=== PATIENT | female | born 1995 | race Caucasian/White ===

== ENCOUNTER 2016-08-29 12:51 | Emergency (ER) | payer OTHER ==
[2016-08-29 12:58] VITALS: BP 136/81
--- NOTE | 2016-08-29 13:34 | ER Document Report ---
ED Medical Screen (RME) - General Chief Complaint: Abdominal Pain Stated Complaint: STOMACH PAIN Time Seen by Provider: 08/29/16 13:26 Notes: Patient is here with stomach pain this began last night. It is in the lower abdomen, bilaterally, but more so on the left side. Patient thinks is due to constipation as she has been diagnosed with IBS. Denies any nausea or vomiting or diarrhea. She took an enema last night and got results, but it did not help her abdominal pains. Denies UTI symptoms. Denies any fever. LMP 5, on no control. PMH: Cholecystectomy. TRAVEL OUTSIDE OF THE [place] IN LAST 30 DAYS: No - Related Data Allergies/Adverse Reactions: acetaminophen [From Percocet] Allergy (Verified 08/29/16 12:57) codeine Allergy (Verified 08/29/16 12:57) cyproheptadine [From Periactin] Allergy (Verified 08/29/16 12:57) oxycodone [From Percocet] Allergy (Verified 08/29/16 12:57) Penicillins Allergy (Verified 08/29/16 12:57) promethazine [From Phenergan] Allergy (Verified 08/29/16 12:57) Past Medical History - Social History Frequency of alcohol use: None Drug Abuse: None Pulmonary Medical History: Reports: Hx Asthma Renal/ Medical History: Denies: Hx Peritoneal Dialysis Past Surgical History: Reports: Hx Cholecystectomy, Hx Tonsillectomy Physical Exam - Vital signs Vitals: Temp Pulse Resp BP Pulse Ox 98.4 F 87 18 136/81 H 100 08/29/16 12:55 08/29/16 12:55 08/29/16 12:55 08/29/16 12:55 08/29/16 12:55 Course - Vital Signs Vital signs: Temp Pulse Resp BP Pulse Ox 98.4 F 87 18 136/81 H 100 08/29/16 12:55 08/29/16 12:55 08/29/16 12:55 08/29/16 12:55 08/29/16 12:55
[2016-08-29 14:24] LABS: ABSOLUTE EOSINOPHILS # (AUTO) 0.1 10^3/uL (0.0-0.6); ABSOLUTE LYMPHOCYTES (AUTO) 1.4 10^3/uL (0.5-4.7); ABSOLUTE MONOCYTES (AUTO) 0.5 10^3/uL (0.1-1.4); ABSOLUTE NEUT (AUTO) 5.6 10^3/uL (1.7-8.2); BASOPHILS % (AUTO) 0.4 % (0-2); EOSINOPHILS % (AUTO) 1.4 % (0-6); HEMATOCRIT 43.8 % (36.0-47.0); HEMOGLOBIN 14.6 g/dL (12.0-15.5); LYMPHOCYTES % (AUTO) 17.9 % (13-45); MEAN CORPUSCULAR HEMOGLOBIN 29.2 pg (27.0-33.4); MEAN CORPUSCULAR HGB CONC 33.2 g/dL (32.0-36.0); MEAN CORPUSCULAR VOLUME 88 fl (80-97); MONOCYTES % (AUTO) 6.8 % (3-13); RED CELL DISTRIBUTION WIDTH 13.6 % (11.5-14.0); SEGMENTED NEUTROPHILS % (AUTO) 73.5 % (42-78); WHITE BLOOD COUNT 7.7 10^3/uL (4.0-10.5)
[2016-08-29 14:25] LABS: APPEARANCE,URINE SLIGHTLY-CLOUDY; BILIRUBIN,URINE NEGATIVE (NEGATIVE); GLUCOSE, URINE NEGATIVE (NEGATIVE); KETONES,URINE NEGATIVE (NEGATIVE); LEUKOCYTE ESTERASE,URINE TRACE (NEGATIVE); NITRITE,URINE NEGATIVE (NEGATIVE); PROTEIN,URINE NEGATIVE (NEGATIVE); URINE SPECIFIC GRAVITY 1.006; UROBILINOGEN,URINE NEGATIVE mg/dL (<2.0)
[2016-08-29 14:39] LABS: ALANINE AMINOTRANSFERASE 28 U/L (9-52); ALKALINE PHOSPHATASE 72 U/L (38-126); ANION GAP 14 (5-19); ASPARTATE AMINO TRANSFERASE 25 U/L (14-36); BILIRUBIN,DIRECT 0.2 mg/dL (0.0-0.4); BILIRUBIN,TOTAL 1.3 mg/dL (0.2-1.3); BLOOD UREA NITROGEN 6 mg/dL (7-20); CALCIUM 9.8 mg/dL (8.4-10.2); CARBON DIOXIDE 26 mmol/L (22-30); CHLORIDE 103 mmol/L (98-107); CREATININE RESULT 0.66 mg/dL (0.52-1.25); GLUCOSE 89 mg/dL (75-110); POTASSIUM 4.3 mmol/L (3.6-5.0); SODIUM 142.5 mmol/L (137-145)
--- NOTE | 2016-08-29 14:53 | ER Document Report ---
ED GI/ - General Chief Complaint: Abdominal Pain Stated Complaint: STOMACH PAIN Time Seen by Provider: 08/29/16 13:26 Mode of Arrival: Ambulatory Information source: Patient Notes: Patient is a 20-year-old female with irritable bowel syndrome who presents to the ER today for constipation 2 and half weeks with generalized abdominal pain. Patient states that she tried an enema last night with no relief. She is also been taking stool softener which has not been helping. She is trying to eat more bran as well as drink more water. TRAVEL OUTSIDE OF THE [place] IN LAST 30 DAYS: No - Related Data Allergies/Adverse Reactions: acetaminophen [From Percocet] Allergy (Verified 09/01/16 02:19) codeine Allergy (Verified 09/01/16 02:19) cyproheptadine [From Periactin] Allergy (Verified 09/01/16 02:19) oxycodone [From Percocet] Allergy (Verified 09/01/16 02:19) Penicillins Allergy (Verified 09/01/16 02:19) promethazine [From Phenergan] Allergy (Verified 09/01/16 02:19) Tetracyclines Allergy (Verified 09/01/16 02:19) Past Medical History - General Information source: Patient - Social History Smoking Status: Former Smoker Frequency of alcohol use: None Drug Abuse: None Family History: Reviewed & Not Pertinent Patient has suicidal ideation: No Patient has homicidal ideation: No Pulmonary Medical History: Reports: Hx Asthma Renal/ Medical History: Denies: Hx Peritoneal Dialysis Past Surgical History: Reports: Hx Cholecystectomy, Hx Tonsillectomy Review of Systems - Review of Systems Constitutional: No symptoms reported EENT: No symptoms reported Cardiovascular: No symptoms reported Respiratory: No symptoms reported Gastrointestinal: See HPI Genitourinary: No symptoms reported Female Genitourinary: No symptoms reported Musculoskeletal: No symptoms reported Skin: No symptoms reported Hematologic/Lymphatic: No symptoms reported Neurological/Psychological: No symptoms reported Physical Exam - Vital signs Vitals: Temp Pulse Resp BP Pulse Ox 98.4 F 87 18 136/81 H 100 08/29/16 12:55 08/29/16 12:55 08/29/16 12:55 08/29/16 12:55 08/29/16 12:55 - Notes Notes: PHYSICAL EXAMINATION: GENERAL: Well-appearing and in no acute distress. HEAD: Atraumatic, normocephalic. EYES: Pupils equal round and reactive to light, extraocular movements intact, sclera anicteric, conjunctiva are normal. NECK: Normal range of motion, supple without lymphadenopathy LUNGS: CTAB and equal. No wheezes rales or rhonchi. HEART: Regular rate and rhythm without murmurs ABDOMEN: Soft, no tenderness. No guarding, no rebound BACK: no vertebral tenderness, normal ROM GI/: no CVA tenderness EXTREMITIES: Normal range of motion, no pitting edema. No cyanosis. NEUROLOGICAL: Cranial nerves grossly intact. Normal sensory/motor exams. PSYCH: Normal mood, normal affect. SKIN: Warm, Dry, normal turgor, no rashes or lesions noted Course - Re-evaluation Re-evalutation: 08/29/16 16:26 Lab work is unremarkable today, patient abdomen was completely nontender to exam , she looks very well. Abdominal x-ray did report moderate stool throughout, normal bowel gas pattern though, will give her senna here. I will also provide her with a constipation regimen. - Vital Signs Vital signs: Temp Pulse Resp BP Pulse Ox 98.4 F 87 18 136/81 H 100 08/29/16 12:55 08/29/16 12:55 08/29/16 12:55 08/29/16 12:55 08/29/16 12:55 - Laboratory Result Diagrams: 08/29/16 14:00 08/29/16 14:00 Laboratory results interpreted by me: 08/29/16 08/29/16 14:00 14:00 BUN 6 L Ur Leukocyte Esterase TRACE H Discharge - Discharge Clinical Impression: Constipation Condition: Stable Disposition: HOME, SELF-CARE Additional Instructions: If you are still constipated and more than 10 hours, go ahead and get senna over -the-counter and take 1-2 more tablets. This really should produce a bowel movement in 6 hours. Return immediately for any new or worsening symptoms. Follow up with primary care provider, call tomorrow to make followup appointment. daily constipation regimen: 1 cup WHOLE BRAN (RED MILL BRAND) 1 cup applesauce 3/4 cup prune juice mix together, keep refrigerated, have patient eat 1-2 tablespoons per day followed by 6-8 ounces of water immediately. Also please consider a SQUATTY POTTY, you can get these online or [employer] for approximately $20. It allows the positioning of patient to have a bowel movement to be most appropriate to facilitate bowel movements. Forms: Return to Work
--- NOTE | 2016-08-29 15:56 | RADIOLOGY REPORT (SQ) ---
EXAM DESCRIPTION: KUB/ABDOMEN (SINGLE VIEW) COMPLETED DATE/TIME: 08/29/2016 3:46 pm REASON FOR STUDY: constipation, abd pain COMPARISON: None. NUMBER OF VIEWS: One view. TECHNIQUE: Supine radiographic image of the abdomen acquired. LIMITATIONS: None. FINDINGS: BOWEL GAS PATTERN: Normal bowel gas pattern. No dilated loops. There is a moderate amount of stool present. There is some small and large bowel gas present. CALCIFICATIONS: No suspicious calcifications. SOFT TISSUES: No gross mass or suggestion of organomegaly. HARDWARE: None in the abdomen. BONES: No acute fracture. No worrisome bone lesions. OTHER: No other significant finding. IMPRESSION: Nonspecific abdomen. TECHNICAL DOCUMENTATION: JOB ID: [id number] [employer]- All Rights Reserved
[2016-08-29] MEDS ORDERED: SENNOSIDES/DOCUSATE 8.6-50 MG 1 EACH TABLET PO ONE (16:07)
== END 2016-08-29 16:51 | disposition home or self-care (01) ==
LOC: ER 12:51
DX: K58.1 Irritable bowel syndrome with constipation (principal); R10.84 Generalized abdominal pain; J45.909 Unspecified asthma, uncomplicated; Z88.5 Allergy status to narcotic agent; Z88.0 Allergy status to penicillin; Z88.8 Allergy status to other drugs, medicaments and biological substances; Z87.891 Personal history of nicotine dependence
CPT/HCPCS: 36415; 74000; 80053; 81001; 83690; 84703; 85025; 99284

== ENCOUNTER 2016-09-01 02:12 | Emergency (ER) | payer OTHER ==
--- NOTE | 2016-09-01 04:47 | RADIOLOGY REPORT (SQ) ---
EXAM DESCRIPTION: CHEST SINGLE VIEW COMPLETED DATE/TIME: 09/01/2016 4:36 am REASON FOR STUDY: shortness of breath COMPARISON: None. EXAM PARAMETERS: NUMBER OF VIEWS: One view. TECHNIQUE: Single frontal radiographic view of the chest acquired. RADIATION DOSE: NA LIMITATIONS: None. FINDINGS: LUNGS AND PLEURA: No consolidation, pneumothorax or pleural effusion. MEDIASTINUM AND HILAR STRUCTURES: No masses. Contour normal. HEART AND VASCULAR STRUCTURES: Heart normal in size. No overt vascular congestion. BONES: No acute findings. HARDWARE: None in the chest. IMPRESSION: No acute radiographic finding in the chest. TECHNICAL DOCUMENTATION: JOB ID: [id number]
[2016-09-01] MEDS ORDERED: ALBUTEROL SULFATE HFA (90 MCG/PUFF) 8 GM MDI (1 MDI/ER DISP) IH PRN (04:57)
--- NOTE | 2016-09-01 05:00 | ER Document Report ---
ED General - General Chief Complaint: Shortness Of Breath Stated Complaint: DIFFICULTY BREATHING Time Seen by Provider: 09/01/16 02:47 Notes: Patient is a 20-year-old female with a past medical history of asthma, no prior hospitalizations or intubations who presents with 3-4 hours of shortness of breath and has not responded to a home albuterol treatment. Patient notes that she has felt her breathing has been getting worse over the last several days since recently moving to [place] but it became much worse tonight. She denies any associated chest pain, hemoptysis, pleuritic pain or syncope. No history of DVT or pulmonary embolus. She has not noted that anything seems to worsen her symptoms. She has not seen her primary care doctor regarding today' s concerns. States her symptoms today feel similar to prior mild exacerbations. TRAVEL OUTSIDE OF THE [place] IN LAST 30 DAYS: No - Related Data Allergies/Adverse Reactions: acetaminophen [From Percocet] Allergy (Verified 09/01/16 02:19) codeine Allergy (Verified 09/01/16 02:19) cyproheptadine [From Periactin] Allergy (Verified 09/01/16 02:19) oxycodone [From Percocet] Allergy (Verified 09/01/16 02:19) Penicillins Allergy (Verified 09/01/16 02:19) promethazine [From Phenergan] Allergy (Verified 09/01/16 02:19) Tetracyclines Allergy (Verified 09/01/16 02:19) Past Medical History - General Information source: Patient - Social History Smoking Status: Never Smoker Frequency of alcohol use: None Drug Abuse: None Lives with: Spouse/Significant other Family History: Reviewed & Not Pertinent Pulmonary Medical History: Reports: Hx Asthma Renal/ Medical History: Denies: Hx Peritoneal Dialysis Past Surgical History: Reports: Hx Cholecystectomy, Hx Tonsillectomy Review of Systems - Review of Systems Notes: Constitutional: Negative for fever. HENT: Negative for sore throat. Eyes: Negative for visual changes. Cardiovascular: Negative for chest pain. Respiratory: Positive for shortness of breath. Gastrointestinal: Negative for abdominal pain, vomiting or diarrhea. Genitourinary: Negative for dysuria. Musculoskeletal: Negative for back pain. Skin: Negative for rash. Neurological: Negative for headaches, weakness or numbness. 10 point ROS negative except as marked above and in HPI. Physical Exam - Vital signs Vitals: Temp Pulse Resp BP Pulse Ox 98.4 F 85 18 126/90 H 100 09/01/16 02:19 09/01/16 02:19 09/01/16 02:19 09/01/16 02:19 09/01/16 02:19 Interpretation: Normal Notes: PHYSICAL EXAMINATION: GENERAL: Well-appearing, well-nourished and in no acute distress. HEAD: Atraumatic, normocephalic. EYES: Pupils equal round and reactive to light, extraocular movements intact, sclera anicteric, conjunctiva are normal. ENT: nares patent, oropharynx clear without exudates. Moist mucous membranes. NECK: Normal range of motion, supple without lymphadenopathy LUNGS: Breath sounds clear to auscultation bilaterally and equal. Scant expiratory wheezing in all [place]. HEART: Regular rate and rhythm without murmurs ABDOMEN: Soft, nontender, normoactive bowel sounds. No guarding, no rebound. No masses appreciated. EXTREMITIES: Normal range of motion, no pitting or edema. No cyanosis. NEUROLOGICAL: No focal neurological deficits. Moves all extremities spontaneously and on command. PSYCH: Normal mood, normal affect. SKIN: Warm, Dry, normal turgor, no rashes or lesions noted. Course - Re-evaluation Re-evalutation: 09/01/16 04:58 Patient presents with a mild exacerbation of their baseline asthma. Mild wheezing at time of presentation but vitals do not show significant hypoxemia or tachypnea. No retractions. Patient did clinically improve after receiving nebulizers here in the emergency department. Chest x-ray without evidence of an acute pneumonia. Patient able to ambulate without any respiratory distress. Based on patient's overall reassuring assessment, I believe they are stable for outpatient management with steroids. I do not suspect an acute alternative pathology at this time based on history and exam including acute pulmonary embolus, ACS, pneumothorax, or aortic dissection. At this time will discharge with return precautions and follow-up recommendations. Verbal discharge instructions given a the bedside and opportunity for questions given. Medication warnings reviewed. Patient is in agreement with this plan and has verbalized understanding of return precautions and the need for primary care follow-up in the next 24-72 hours. - Vital Signs Vital signs: Temp Pulse Resp BP Pulse Ox 98.4 F 85 18 126/90 H 100 09/01/16 02:19 09/01/16 02:19 09/01/16 02:19 09/01/16 02:19 09/01/16 02:19 - Diagnostic Test Radiology reviewed: Image reviewed, Reports reviewed Radiology results interpreted by me: 09/01/16 04:58 Chest x-ray: No acute infiltrate or pneumothorax - EKG Interpretation by Me Additional EKG results interpreted by me: 09/01/16 04:58 Normal sinus rhythm. Rate 82. No ST elevations or depressions. QTC is 458. Discharge - Discharge Clinical Impression: Asthma exacerbation Condition: Good Disposition: HOME, SELF-CARE Additional Instructions: You were seen for an asthma exacerbation. It is very important that you return to the emergency department immediately if you began to have worsening difficulty breathing that does not respond to your normal home nebulizers. You are also being sent home on a five-day course of steroids that you should start taking tomorrow if your symptoms are not improving. Please also follow closely with your primary care physician. you should also return to emergency department if you develop fever greater than 101, persistent cough, persistent vomiting, pass out, or any other symptoms that are concerning to you. Prescriptions: Prednisone [Deltasone 20 mg Tablet] 3 tab PO DAILY 5 Days
[2016-09-01 06:11] VITALS: BP 117/86
--- NOTE | 2016-09-01 09:37 | EKG REPORT ---
SEVERITY:- NORMAL ECG - SINUS RHYTHM : Confirmed by: Andrea Jung 01-Sep-2016 09:36:40
== END 2016-09-01 05:10 | disposition home or self-care (01) ==
LOC: ER 02:12
DX: J45.901 Unspecified asthma with (acute) exacerbation (principal); R06.02 Shortness of breath; Z88.5 Allergy status to narcotic agent; Z88.0 Allergy status to penicillin; Z88.8 Allergy status to other drugs, medicaments and biological substances; Z88.1 Allergy status to other antibiotic agents
CPT/HCPCS: 93005; 99285; 71010; 93010; J3490

== ENCOUNTER 2016-12-18 09:37 | Emergency (ER) | payer OTHER ==
--- NOTE | 2016-12-18 10:03 | ER Document Report ---
ED Medical Screen (RME) - General Chief Complaint: OB Problem (<20wks) Stated Complaint: AMNIOTIC FLUID CHECK PER OB Time Seen by Provider: 12/18/16 10:02 Notes: Patient states that she was referred here from her SEED TESTER. She states she had a small leakage of clear fluid from her vaginal area this morning. No bleeding no abdominal pain. TRAVEL OUTSIDE OF THE [place] IN LAST 30 DAYS: No - Related Data Allergies/Adverse Reactions: acetaminophen [From Percocet] Allergy (Verified 12/18/16 09:47) codeine Allergy (Verified 12/18/16 09:47) cyproheptadine [From Periactin] Allergy (Verified 12/18/16 09:47) oxycodone [From Percocet] Allergy (Verified 12/18/16 09:47) Penicillins Allergy (Verified 12/18/16 09:47) promethazine [From Phenergan] Allergy (Verified 12/18/16 09:47) Tetracyclines Allergy (Verified 12/18/16 09:47) Past Medical History Pulmonary Medical History: Reports: Hx Asthma Renal/ Medical History: Denies: Hx Peritoneal Dialysis Past Surgical History: Reports: Hx Cholecystectomy, Hx Tonsillectomy Physical Exam - Vital signs Vitals: Temp Pulse Resp BP Pulse Ox 98.5 F 107 H 18 131/82 H 100 12/18/16 09:43 12/18/16 09:43 12/18/16 09:43 12/18/16 09:43 12/18/16 09:43 Course - Vital Signs Vital signs: Temp Pulse Resp BP Pulse Ox 98.5 F 107 H 18 131/82 H 100 12/18/16 09:43 12/18/16 09:43 12/18/16 09:43 12/18/16 09:43 12/18/16 09:43
[2016-12-18 10:49] LABS: APPEARANCE,URINE CLEAR; BILIRUBIN,URINE NEGATIVE (NEGATIVE); GLUCOSE, URINE NEGATIVE (NEGATIVE); KETONES,URINE NEGATIVE (NEGATIVE); LEUKOCYTE ESTERASE,URINE SMALL (NEGATIVE); NITRITE,URINE NEGATIVE (NEGATIVE); PROTEIN,URINE NEGATIVE (NEGATIVE); URINE SPECIFIC GRAVITY 1.003; UROBILINOGEN,URINE NEGATIVE mg/dL (<2.0)
--- NOTE | 2016-12-18 11:36 | RADIOLOGY REPORT (SQ) ---
EXAM DESCRIPTION: U/S OB 14+ TRNABD 1GES W/O DOP COMPLETED DATE/TIME: 12/18/2016 11:24 am REASON FOR STUDY: leaking fluid COMPARISON: None. TECHNIQUE: Static and Dynamic grayscale imaging performed of gravid uterus using transabdominal appr oach. Additional selected color Doppler and spectral images recorded. All stored on PACS. LIMITATIONS: None. FINDINGS: EGA: 16 weeks 2 days MEETA: 06/02/2017 EFW: 153 +/-23 grams PERCENTILE: Not applicable. Fetus less than or equal to 20 weeks gestation. LVP: 3.9 cm PLACENTA: Anterior grade 1 PRESENTATION: Variable ANATOMY: HEART RATE: 133 beats per minute. FOUR CHAMBER HEART: Not assessed THREE VESSEL CORD: Not assessed CORD INSERTION: Not assessed KIDNEYS AND BLADDER: Not assessed STOMACH: Visualized. Appears normal. SPINE: Normal as visualized. BRAIN AND LATERAL VENTRICLES: Not assessed OTHER: Extremities are grossly normal. MATERNAL ADNEXA: Maternal ovaries not visualized. CERVICAL LENGTH: 3 cm Closed. OTHER: No other significant finding. IMPRESSION: Live intrauterine gestation of 16 weeks 2 days with estimated date of delivery of 018. Complete anatomical survey was not performed Trimester of : Second trimester - 13 weeks 1 day to 27 weeks 6 days. TECHNICAL DOCUMENTATION: JOB ID: [id number] [employer]- All Rights Reserved
--- NOTE | 2016-12-18 13:16 | ER Document Report ---
ED General - General Chief Complaint: OB Problem (<20wks) Stated Complaint: AMNIOTIC FLUID CHECK PER OB Time Seen by Provider: 12/18/16 10:02 TRAVEL OUTSIDE OF THE [place] IN LAST 30 DAYS: No - HPI Patient complains to provider of: Vaginal discharge Notes: Patient coming in she states she is approximately 16 weeks states mostly clear vaginal discharge earlier today called her OB [facility] OD and was told to come to the ER for further evaluation. Patient denies any trauma denies any fevers chills nausea vomiting states the discharge is clear. Patient is a . Patient denies any abdominal pain or abdominal cramping at this time. - Related Data Allergies/Adverse Reactions: acetaminophen [From Percocet] Allergy (Verified 12/18/16 09:47) codeine Allergy (Verified 12/18/16 09:47) cyproheptadine [From Periactin] Allergy (Verified 12/18/16 09:47) oxycodone [From Percocet] Allergy (Verified 12/18/16 09:47) Penicillins Allergy (Verified 12/18/16 09:47) promethazine [From Phenergan] Allergy (Verified 12/18/16 09:47) Tetracyclines Allergy (Verified 12/18/16 09:47) Home Medications: Current Home Medications Albuterol Sulfate [Proair HFA] 1 - 2 puff IH Q4 PRN 12/18/16 [History] Fluticasone/Salmeterol [Advair HFA 115-21 mcg Inhaler] 1 puff IN BID 12/18/16 [ History] 95/Iron Fum/Folic/Dha [ + Dha Combo Pack] 1 each PO DAILY 12/18 [History] Past Medical History - Social History Smoking Status: Never Smoker Chew tobacco use (# tins/day): No Frequency of alcohol use: None Drug Abuse: None Family History: Reviewed & Not Pertinent Pulmonary Medical History: Reports: Hx Asthma Renal/ Medical History: Denies: Hx Peritoneal Dialysis Past Surgical History: Reports: Hx Cholecystectomy, Hx Tonsillectomy - Immunizations Hx Diphtheria, Pertussis, Tetanus Vaccination: No Review of Systems - Review of Systems Constitutional: No symptoms reported EENT: No symptoms reported Cardiovascular: No symptoms reported Respiratory: No symptoms reported Gastrointestinal: No symptoms reported Genitourinary: No symptoms reported Female Genitourinary: Vaginal discharge Musculoskeletal: No symptoms reported Skin: No symptoms reported Hematologic/Lymphatic: No symptoms reported Neurological/Psychological: No symptoms reported -: Yes All other systems reviewed and negative Physical Exam - Vital signs Vitals: Temp Pulse Resp BP Pulse Ox 98.5 F 107 H 18 131/82 H 100 12/18/16 09:43 12/18/16 09:43 12/18/16 09:43 12/18/16 09:43 12/18/16 09:43 Interpretation: Normal - General General appearance: Appears well, Alert - HEENT Head: Normocephalic, Atraumatic Eyes: Normal Pupils: PERRL - Respiratory Respiratory status: No respiratory distress Chest status: Nontender Breath sounds: Normal Chest palpation: Normal - Cardiovascular Rhythm: Regular Heart sounds: Normal auscultation Murmur: No - Abdominal Inspection: Normal Distension: No distension Bowel sounds: Normal Tenderness: Nontender Organomegaly: No organomegaly - Back Back: Normal, Nontender - Extremities General upper extremity: Normal inspection, Nontender, Normal color, Normal ROM , Normal temperature General lower extremity: Normal inspection, Nontender, Normal color, Normal ROM , Normal temperature, Normal weight bearing. No: Angela's sign - Neurological Neuro grossly intact: Yes Cognition: Normal Orientation: AAOx4 Shalonda Coma Scale Eye Opening: Spontaneous [place]onda Coma Scale Verbal: Oriented Shalonda Coma Scale Motor: Obeys Commands [place] Coma Scale Total: 15 Speech: Normal Motor strength normal: LUE, RUE, LLE, RLE Sensory: Normal - Psychological Associated symptoms: Normal affect, Normal mood - Skin Skin Temperature: Warm Skin Moisture: Dry Skin Color: Normal Course - Re-evaluation Re-evalutation: 12/18/16 17:06 An ultrasound was performed these results were discussed with our PHONOGRAPH NEEDLE T[employer] MAKER on- call states this time no need for amniotic fluid testing is that we do not have the kids here in the ER anymore states that the patient can follow-up with her PHONOGRAPH [employer]LE TIP MAKER. I was able to contact [facility] PHONOGRAPH NEEDLE TIP MAKER at this time agrees with assessment states that they will call the patient for an appointment tomorrow. Patient was updated that she will have a call from her PHONOGRAPH NEEDLE TIP MAKER for appointment tomorrow to observe pelvic rest. - Vital Signs Vital signs: Temp Pulse Resp BP Pulse Ox 98.2 F 63 18 108/65 100 12/18/16 13:39 12/18/16 13:39 12/18/16 13:39 12/18/16 13:39 12/18/16 13:39 - Laboratory Laboratory results interpreted by me: 12/18/16 10:30 Ur Leukocyte Esterase SMALL H Discharge - Discharge Clinical Impression: Vaginal discharge during Qualifiers: Trimester: second trimester Qualified Code(s): O26.892 - Other specified related conditions, second trimester Condition: Good Disposition: HOME, SELF-CARE Instructions: ([facility]) Additional Instructions: At this time your ultrasound shows normal healthy baby. Please follow-up with your PHONOGRAPH NEEDLE TIP MAKER tomorrow. Your [facility]ONOGRAPH [facility]LE TIP [facility] clinic will call you with a follow-up appointment. Referrals: INDIRA SILVEIRA, DO [Primary Care Provider] - Follow up as needed
[2016-12-18 13:40] VITALS: BP 108/65
== END 2016-12-18 13:41 | disposition home or self-care (01) ==
LOC: ER 09:37
DX: O26.892 Other specified pregnancy related conditions, second trimester (principal); N89.8 Other specified noninflammatory disorders of vagina; Z3A.16 16 weeks gestation of pregnancy; Z79.899 Other long term (current) drug therapy
CPT/HCPCS: 76805; 81001; 99284